=== PATIENT | male | born 1950 | race Caucasian/White ===

== ENCOUNTER 2016-10-18 05:49 | Inpatient (IN) | payer MEDICARE, OTHER ==
[~2016-10-18] VITALS: Ht 175.3 cm; Wt 80.7 kg
[2016-10-18] MEDS ORDERED: ONDANSETRON 4 MG VIAL ONE (06:23)
[2016-10-18] MEDS ORDERED: DILAUDID 1 MG/ML AMP ONE (06:24)
[2016-10-18] MEDS ORDERED: SODIUM CHLORIDE 0.9% 1,000 ML ONE ×2 (06:24→07:14)
[2016-10-18] MEDS ORDERED: ONDANSETRON 4 MG VIAL IV PUSH PRN (07:10)
[2016-10-18] MEDS ORDERED: ACETAMINOPHEN 325 MG TAB PO PRN (07:10)
[2016-10-18] MEDS ORDERED: [UNRECOGNIZED DRUG - REMARK] XX SCH (09:28)
[2016-10-18 09:35] VITALS: BP_SYST 120; BP_SYST 124; RESP 20; TEMP 98.3; BMI 27.1
[2016-10-18] MEDS: DEXTROSE 5% SALINE 0.225% 1,000 ML IV SCH ×2 (09:39→19:25)
[2016-10-18 09:51] VITALS: Ht 175.3 cm; Wt 80.7 kg
[2016-10-18] MEDS ORDERED: *PINK BRACELET XX ONE (10:15)
[2016-10-18 11:08] VITALS: BP_SYST 128; RESP 20; TEMP 98.5
[2016-10-18] MEDS ORDERED: BISACODYL 10 MG SUPP RECTAL ONE (14:00)
[2016-10-18] MEDS: CEFTRIAXONE 1 GM in SODIUM CHLORIDE 0.9% 50 ML IV SCH ×2 (14:05→19:47)
[2016-10-18] MEDS: TAMSULOSIN 0.4 MG CAP PO SCH (14:06)
[2016-10-18 15:12] VITALS: BP_SYST 124; RESP 18; TEMP 98.3
[2016-10-18 19:14] VITALS: BP_SYST 113; RESP 18; TEMP 98.4
[2016-10-18] MEDS: *HOME MEDS KEPT IN PHARMACY XX SCH (19:47)
[2016-10-18] MEDS ORDERED: FAMOTIDINE 20 MG/50 ML 50 ML IV SCH (21:00)
[2016-10-18] MEDS: FAMOTIDINE 20 MG INJ IV SCH (21:17)
[2016-10-18 23:25] VITALS: BP_SYST 109; TEMP 98.3
[2016-10-18 23:26] VITALS: RESP 18
[2016-10-19] VITALS (8 sets, daily range): BP systolic 101–131; RESP 16–22; TEMP 97.9–98.9
[2016-10-19] MEDS: DEXTROSE 5% SALINE 0.225% 1,000 ML IV SCH ×2 (03:53→20:03)
[2016-10-19] MEDS: *HOME MEDS KEPT IN PHARMACY XX SCH ×2 (08:00→19:52)
[2016-10-19] MEDS: TAMSULOSIN 0.4 MG CAP PO SCH ×2 (09:00→19:51)
[2016-10-19] MEDS: CEFTRIAXONE 1 GM in SODIUM CHLORIDE 0.9% 50 ML IV SCH ×2 (09:08→19:51)
[2016-10-19] MEDS: FAMOTIDINE 20 MG INJ IV SCH ×2 (09:08→19:52)
[2016-10-19] MEDS ORDERED: KETOROLAC 15 MG/ML VIAL IM PRN (12:45)
[2016-10-19] MEDS ORDERED: KETOROLAC 15 MG/ML VIAL IV SCH (16:00)
[2016-10-20 03:50] VITALS: BP_SYST 116; RESP 16; TEMP 98.1
[2016-10-20] MEDS: DEXTROSE 5% SALINE 0.225% 1,000 ML IV SCH (04:05)
[2016-10-20 07:18] VITALS: BP_SYST 117; RESP 15; TEMP 98.7
[2016-10-20] MEDS: *HOME MEDS KEPT IN PHARMACY XX SCH ×2 (08:00→20:00)
[2016-10-20] MEDS: FAMOTIDINE 20 MG INJ IV SCH ×2 (08:07→21:50)
[2016-10-20] MEDS: CEFTRIAXONE 1 GM in SODIUM CHLORIDE 0.9% 50 ML IV SCH ×2 (08:07→21:49)
[2016-10-20] MEDS ORDERED: DEXTROSE 5% SALINE 0.225% 1,000 ML IV SCH (08:20)
[2016-10-20] MEDS: POLYETHYLENE GLYCOL 17 GM PACKET PO SCH (09:29)
[2016-10-20] MEDS: DOCUSATE SOD 100 MG CAP PO SCH ×2 (09:29→21:51)
[2016-10-20 11:20] VITALS: BP_SYST 113; RESP 15; TEMP 98.3
[2016-10-20 15:33] VITALS: BP_SYST 119; RESP 15; TEMP 98.1
[2016-10-20 19:25] VITALS: BP_SYST 106; RESP 16; TEMP 98.3
[2016-10-20] MEDS: TAMSULOSIN 0.4 MG CAP PO SCH (21:51)
[2016-10-20 22:51] VITALS: BP_SYST 105; RESP 16; TEMP 98.3
[2016-10-21 03:05] VITALS: BP_SYST 108; RESP 16; TEMP 98.8
[2016-10-21 07:23] VITALS: BP_SYST 124; RESP 16; TEMP 98
[2016-10-21] MEDS: *HOME MEDS KEPT IN PHARMACY XX SCH ×2 (08:00→11:30)
[2016-10-21] MEDS: FAMOTIDINE 20 MG INJ IV SCH (08:24)
[2016-10-21] MEDS: POLYETHYLENE GLYCOL 17 GM PACKET PO SCH (08:24)
[2016-10-21] MEDS: DOCUSATE SOD 100 MG CAP PO SCH (08:24)
[2016-10-21] MEDS: CEFTRIAXONE 1 GM in SODIUM CHLORIDE 0.9% 50 ML IV SCH (08:24)
[2016-10-21 10:22] VITALS: BP_SYST 124; RESP 16; TEMP 98
== END 2016-10-21 11:59 | disposition home or self-care (01) | DRG 920 ==
LOC: ENRESERVDT → ENRESERVTM → ER 05:49 → EMR 07:10 → 5THE 09:28 → ENPENDDIS 10-19 09:01 → OBSVTOIN 10-19 09:01
PROVIDERS: ADMIT Urology; ATTEND Urology
DX: N99.820 Postprocedural hemorrhage of a genitourinary system organ or structure following a genitourinary system procedure (principal); D62 Acute posthemorrhagic anemia; G20 Parkinson's disease; Y84.8 Other medical procedures as the cause of abnormal reaction of the patient, or of later complication, without mention of misadventure at the time of the procedure; Y92.009 Unspecified place in unspecified non-institutional (private) residence as the place of occurrence of the external cause; N99.841 Postprocedural hematoma of a genitourinary system organ or structure following other procedure; Z79.01 Long term (current) use of anticoagulants; Z86.711 Personal history of pulmonary embolism; G25.81 Restless legs syndrome; R97.20 Elevated prostate specific antigen [PSA]
CPT/HCPCS: 36415; 51702; 74176; 80048; 80053; 81001; 83690; 85025; 86850; 86900; 86901; 87040; 87088; 88305; 88342; 96361; 96374; 96375

== ENCOUNTER 2016-10-31 14:00 | Inpatient (IN) | payer MEDICARE, OTHER ==
[~2016-10-31] VITALS: Ht 175.3 cm; Wt 84.8 kg
[2016-10-31] MEDS ORDERED: OPTIRAY 350 100 ML VIAL HMH IV ONE (14:01)
[2016-10-31] MEDS ORDERED: DUONEB INH ONE (14:22)
[2016-10-31] MEDS ORDERED: SODIUM CHLORIDE 0.9% 1,000 ML ONE (16:13)
[2016-10-31] MEDS ORDERED: ENOXAPARIN 80 MG/0.8 ML SYR SUBQ ONE (16:13)
[2016-10-31 17:50] VITALS: BP_SYST 120; RESP 22; TEMP 98
[2016-10-31] MEDS ORDERED: Flu Vaccine Quadrivalent 60 MCG/0.5 ML IM.VACC ONE (17:50)
[2016-10-31 17:52] VITALS: Ht 175.3 cm; Wt 84.8 kg
[2016-10-31 19:27] VITALS: BP_SYST 111; RESP 16; TEMP 98.9
[2016-10-31] MEDS ORDERED: ENOXAPARIN 80 MG/0.8 ML SYR SUBQ SCH (19:30)
[2016-10-31] MEDS ORDERED: SOD CHLOR 0.9% 1000 ML IV SCH (19:35)
[2016-10-31] MEDS: LATANOPROST OP SOLN EYE EACH SCH (20:26)
[2016-10-31] MEDS: TAMSULOSIN 0.4 MG CAP PO SCH (20:26)
[2016-10-31 20:30] VITALS: RESP 22
[2016-10-31] MEDS: DUONEB INH SCH (22:52)
[2016-10-31 23:11] VITALS: BP_SYST 112; RESP 18; TEMP 98.2
[2016-10-31] MEDS: MORPHINE 2 MG/ML SYR IV PRN (23:39)
[2016-11-01] MEDS: DUONEB INH SCH ×6 (02:17→22:37)
[2016-11-01 04:14] VITALS: BP_SYST 114; RESP 16; TEMP 98.7
[2016-11-01] MEDS ORDERED: ENOXAPARIN 80 MG/0.8 ML SYR SUBQ SCH (05:00)
[2016-11-01] MEDS: MORPHINE 2 MG/ML SYR IV PRN (06:35)
[2016-11-01 07:21] VITALS: BP_SYST 108; RESP 18; TEMP 97.7
[2016-11-01] MEDS ORDERED: MISSING DOSE XX ONE (10:15)
[2016-11-01] MEDS: Rivaroxaban 15 MG TAB PO SCH ×2 (10:23→16:58)
[2016-11-01 11:09] VITALS: BP_SYST 121; RESP 18; TEMP 98.3
[2016-11-01] MEDS: BENZONATATE 100 MG CAP PO SCH ×3 (11:48→20:17)
[2016-11-01 15:14] VITALS: BP_SYST 117; RESP 18; TEMP 98.3
[2016-11-01 19:29] VITALS: BP_SYST 136; RESP 22; TEMP 99.3
[2016-11-01] MEDS: TAMSULOSIN 0.4 MG CAP PO SCH (20:17)
[2016-11-01] MEDS: LATANOPROST OP SOLN EYE EACH SCH (20:17)
[2016-11-01 23:50] VITALS: BP_SYST 119; RESP 20; TEMP 99.2
[2016-11-02] MEDS: DUONEB INH SCH ×6 (02:42→22:56)
[2016-11-02 04:28] VITALS: BP_SYST 120; RESP 20; TEMP 99.1
[2016-11-02 08:00] VITALS: BP_SYST 126; RESP 18; TEMP 98.6
[2016-11-02] MEDS: BENZONATATE 100 MG CAP PO SCH ×3 (08:02→20:49)
[2016-11-02] MEDS: Rivaroxaban 15 MG TAB PO SCH ×2 (08:02→16:16)
[2016-11-02 11:30] VITALS: BP_SYST 117; RESP 18; TEMP 98.5
[2016-11-02 15:24] VITALS: BP_SYST 119; RESP 20; TEMP 98.5
[2016-11-02 19:47] VITALS: BP_SYST 121; RESP 22; TEMP 98.6
[2016-11-02] MEDS: TAMSULOSIN 0.4 MG CAP PO SCH (20:49)
[2016-11-02] MEDS: LATANOPROST OP SOLN EYE EACH SCH (20:49)
[2016-11-02] MEDS: FLUTICASONE 0.05% NA BTL NARE EACH SCH (21:08)
[2016-11-02] MEDS: OXYMETAZOLINE 0.05% NOSE SPRAY NARE EACH SCH (21:08)
[2016-11-02 23:50] VITALS: BP_SYST 116; RESP 20; TEMP 98.9
[2016-11-03] VITALS (7 sets, daily range): BP systolic 107–127; RESP 16–22; TEMP 98.2–100.8
[2016-11-03] MEDS: DUONEB INH SCH ×6 (02:26→22:56)
[2016-11-03] MEDS: FLUTICASONE 0.05% NA BTL NARE EACH SCH ×2 (08:08→20:06)
[2016-11-03] MEDS: OXYMETAZOLINE 0.05% NOSE SPRAY NARE EACH SCH ×2 (08:08→20:06)
[2016-11-03] MEDS: BENZONATATE 100 MG CAP PO SCH ×3 (08:09→20:06)
[2016-11-03] MEDS: Rivaroxaban 15 MG TAB PO SCH ×2 (08:09→16:53)
[2016-11-03] MEDS: TAMSULOSIN 0.4 MG CAP PO SCH (20:06)
[2016-11-03] MEDS: LATANOPROST OP SOLN EYE EACH SCH (20:06)
[2016-11-04] MEDS: DUONEB INH SCH ×6 (02:43→22:49)
[2016-11-04 02:45] VITALS: BP_SYST 113; RESP 16; TEMP 98.8
[2016-11-04 07:00] VITALS: BP_SYST 94; RESP 16; TEMP 100
[2016-11-04] MEDS: FLUTICASONE 0.05% NA BTL NARE EACH SCH ×2 (08:59→20:49)
[2016-11-04] MEDS: BENZONATATE 100 MG CAP PO SCH ×3 (08:59→20:49)
[2016-11-04] MEDS: Rivaroxaban 15 MG TAB PO SCH ×2 (08:59→16:54)
[2016-11-04] MEDS: OXYMETAZOLINE 0.05% NOSE SPRAY NARE EACH SCH ×2 (08:59→20:49)
[2016-11-04 11:40] VITALS: BP_SYST 104; RESP 16; TEMP 102.7
[2016-11-04 15:00] VITALS: BP_SYST 111; RESP 16; TEMP 98.6
[2016-11-04] MEDS ORDERED: PHARMACY TO DOSE ZOSYN IV SCH (15:00)
[2016-11-04] MEDS ORDERED: PHARMACY TO DOSE VANCOMYCIN IV SCH (15:00)
[2016-11-04] MEDS ORDERED: VANCOMYCIN 1,750 MG in SODIUM CHLORIDE 0.9% 500 ML IV STA (15:35)
[2016-11-04] MEDS: PIPERACIL/TAZO 4.5GM/100ML 100 ML IV SCH ×2 (18:44→23:33)
[2016-11-04 20:39] VITALS: BP_SYST 106; RESP 18; TEMP 98.2
[2016-11-04] MEDS: LATANOPROST OP SOLN EYE EACH SCH (20:48)
[2016-11-04] MEDS: HYDROCORT TOPICAL SCH (20:48)
[2016-11-04] MEDS: TAMSULOSIN 0.4 MG CAP PO SCH (20:49)
[2016-11-04 23:49] VITALS: BP_SYST 103; RESP 18; TEMP 98.3
[2016-11-05] MEDS: DUONEB INH SCH ×6 (02:13→22:51)
[2016-11-05] MEDS: VANCOMYCIN 1,500 MG in SODIUM CHLORIDE 0.9% 250 ML IV SCH ×2 (03:19→16:05)
[2016-11-05 03:30] VITALS: BP_SYST 110; RESP 18; TEMP 98.4
[2016-11-05] MEDS: PIPERACIL/TAZO 4.5GM/100ML 100 ML IV SCH ×3 (05:49→17:44)
[2016-11-05 07:42] VITALS: BP_SYST 101; RESP 18; TEMP 99.2
[2016-11-05] MEDS: Rivaroxaban 15 MG TAB PO SCH ×2 (08:08→16:06)
[2016-11-05] MEDS: BENZONATATE 100 MG CAP PO SCH ×3 (08:09→22:18)
[2016-11-05] MEDS: FLUTICASONE 0.05% NA BTL NARE EACH SCH ×2 (08:09→22:17)
[2016-11-05] MEDS: HYDROCORT TOPICAL SCH ×2 (08:09→22:19)
[2016-11-05] MEDS: OXYMETAZOLINE 0.05% NOSE SPRAY NARE EACH SCH ×2 (08:10→22:17)
[2016-11-05 11:36] VITALS: BP_SYST 100; RESP 18; TEMP 98.1
[2016-11-05 15:48] VITALS: BP_SYST 97; RESP 18; TEMP 98.9
[2016-11-05 19:00] VITALS: BP_SYST 113; RESP 18; TEMP 99.1
[2016-11-05] MEDS ORDERED: MISSING DOSE XX ONE (21:55)
[2016-11-05] MEDS: LATANOPROST OP SOLN EYE EACH SCH (22:18)
[2016-11-05] MEDS: DOCUSATE SOD 100 MG CAP PO SCH (22:18)
[2016-11-05] MEDS: TAMSULOSIN 0.4 MG CAP PO SCH (22:18)
[2016-11-05 23:00] VITALS: BP_SYST 111; RESP 18; TEMP 98.9
[2016-11-06] MEDS: TUSSIONEX SUSP UDC PO PRN ×2 (01:07→10:14)
[2016-11-06] MEDS: PIPERACIL/TAZO 4.5GM/100ML 100 ML IV SCH ×2 (01:07→06:15)
[2016-11-06] MEDS: DUONEB INH SCH ×6 (02:08→23:27)
[2016-11-06] MEDS: VANCOMYCIN 1,500 MG in SODIUM CHLORIDE 0.9% 250 ML IV SCH (03:57)
[2016-11-06 03:58] VITALS: BP_SYST 107; RESP 16; TEMP 97.9
[2016-11-06] MEDS ORDERED: SODIUM CHLORIDE 0.9% FLUSH BAG 500 ML IV PRN (06:20)
[2016-11-06 08:16] VITALS: BP_SYST 108; RESP 18; TEMP 98
[2016-11-06] MEDS: BENZONATATE 100 MG CAP PO SCH ×3 (09:00→20:36)
[2016-11-06] MEDS ORDERED: Furosemide 20 MG/2 ML VIAL IV SCH ×2 (09:00→17:00)
[2016-11-06] MEDS: Rivaroxaban 15 MG TAB PO SCH ×2 (10:03→17:47)
[2016-11-06] MEDS: DOCUSATE SOD 100 MG CAP PO SCH ×2 (10:03→20:37)
[2016-11-06] MEDS: FLUTICASONE 0.05% NA BTL NARE EACH SCH ×2 (10:04→20:37)
[2016-11-06] MEDS: OXYMETAZOLINE 0.05% NOSE SPRAY NARE EACH SCH ×2 (10:04→20:37)
[2016-11-06] MEDS: HYDROCORT TOPICAL SCH ×2 (10:07→20:37)
[2016-11-06] MEDS ORDERED: MISSING DOSE XX ONE (10:10)
[2016-11-06 11:14] VITALS: BP_SYST 102; RESP 18; TEMP 97.9
[2016-11-06] MEDS ORDERED: METHYLPRED SOD SUCC 125 MG/2 ML VIAL IV ONE (12:45)
[2016-11-06] MEDS: DIPHENHYDRAMINE 25 MG CAP PO SCH ×3 (13:07→20:37)
[2016-11-06 15:31] VITALS: BP_SYST 112; RESP 18; TEMP 97.8
[2016-11-06 19:56] VITALS: BP_SYST 113; RESP 18; TEMP 97.3
[2016-11-06] MEDS: TAMSULOSIN 0.4 MG CAP PO SCH (20:37)
[2016-11-06] MEDS: LATANOPROST OP SOLN EYE EACH SCH (20:37)
[2016-11-06 23:34] VITALS: BP_SYST 109; RESP 18; TEMP 98.5
[2016-11-07] VITALS (8 sets, daily range): BP systolic 112–115; RESP 18; TEMP 95.8–97.8
[2016-11-07] MEDS: DUONEB INH SCH ×4 (03:21→15:00)
[2016-11-07] MEDS: OXYMETAZOLINE 0.05% NOSE SPRAY NARE EACH SCH (07:49)
[2016-11-07] MEDS: FLUTICASONE 0.05% NA BTL NARE EACH SCH (07:49)
[2016-11-07] MEDS: HYDROCORT TOPICAL SCH (07:49)
[2016-11-07] MEDS: DIPHENHYDRAMINE 25 MG CAP PO SCH (07:50)
[2016-11-07] MEDS: DOCUSATE SOD 100 MG CAP PO SCH (07:50)
[2016-11-07] MEDS: BENZONATATE 100 MG CAP PO SCH (07:51)
[2016-11-07] MEDS: Rivaroxaban 15 MG TAB PO SCH (07:51)
[2016-11-07] MEDS ORDERED: Furosemide 40 MG TAB PO SCH (09:00)
[2016-11-07] MEDS ORDERED: PREDNISONE 20 MG TAB PO SCH (09:00)
== END 2016-11-07 15:07 | disposition home health service (06) | DRG 175 ==
LOC: ENRESERVTM → ENRESERVDT → ER 14:00 → EMR 16:29 → ENPENDDIS 16:29 → 4THE 17:29
PROVIDERS: ADMIT Hospitalist; ATTEND Hospitalist
DX: I26.99 Other pulmonary embolism without acute cor pulmonale (principal); J96.01 Acute respiratory failure with hypoxia; I82.4Z2 Acute embolism and thrombosis of unspecified deep veins of left distal lower extremity; I50.9 Heart failure, unspecified; I27.2 Other secondary pulmonary hypertension; R33.9 Retention of urine, unspecified; G25.81 Restless legs syndrome; R50.9 Fever, unspecified; R21 Rash and other nonspecific skin eruption; R53.1 Weakness; I11.0 Hypertensive heart disease with heart failure; Z85.46 Personal history of malignant neoplasm of prostate; T45.516A Underdosing of anticoagulants, initial encounter; Z91.128 Patient's intentional underdosing of medication regimen for other reason; Y92.009 Unspecified place in unspecified non-institutional (private) residence as the place of occurrence of the external cause
CPT/HCPCS: 36415; 36600; 51702; 71010; 71260; 80051; 80053; 82330; 82553; 82803; 83880; 84484; 85025; 87040; 87088; 93005; 93306; 93970; 94640; 94799; 96372; 99222; 99223; 99232; 99233; 99238